=== PATIENT | female | born 1960 | race Asian ===

== ENCOUNTER 2017-01-15 17:07 | Inpatient (IN) | payer OTHER ==
[~2017-01-15] VITALS: Ht 152.4 cm; Wt 64.3 kg
[~2017-01-15 17:07] MED LIST: AMLO-512 PO; ASPI81TA2 PO; ATOR40TA28 PO; CALC25 PO; CARB4OS OU; ERGO500044 PO; FERR-72 PO; FOLI1CAP2 PO; FURO80TA87 PO; INSNOV SQ; INSU100C4 SQ; LEVO250T2 PO; LISI-662 PO; METO-325 PO; METR500T PO; ONDA4TAB10 PO; OS500 PO; SEVEC800 PO
[2017-01-15] MEDS ORDERED: DOCU250C91 PO (17:20)
[2017-01-15] MEDS ORDERED: TRAM50TA4 PO (17:21)
[2017-01-15 17:34] LABS: BASOPHILS # (AUTO) 0.02 K/uL (0.00-0.20); BASOPHILS % (AUTO) 0.4 % (0.0-2.0); EOSINOPHILS # (AUTO) 0.15 K/uL (0.00-0.70); EOSINOPHILS % (AUTO) 2.63 % (1.0-6.0); HEMATOCRIT 31.5 % (36-46); HEMOGLOBIN 10.5 g/dL (12.0-16.0); LYMPHOCYTES # (AUTO) 1.2 K/uL (1.0-4.8); LYMPHOCYTES % (AUTO) 21.5 % (22.0-44.0); MEAN CORPUSCULAR HEMOGLOBIN 29.8 pg (26.0-34.0); MEAN CORPUSCULAR HGB CONC 33.3 G/dL (31.0-37.0); MEAN CORPUSCULAR VOLUME 89 fL (80-100); MONOCYTES # (AUTO) 0.3 K/uL (0.1-1.0); MONOCYTES % (AUTO) 5.7 % (2.0-9.0); NEUTROPHILS % (AUTO) 69.8 % (40.0-70.0); PLATELET COUNT (AUTO) 215 K/uL (150-450); RED BLOOD CELL COUNT(AUTO) 3.53 MIL/uL (4.00-5.20); WHITE BLOOD COUNT (AUTO) 5.8 K/uL (4.5-11.0)
[2017-01-15 17:37] LABS: GLUCOSE,POINT OF CARE 298 MG/DL (70-110)
[2017-01-15 17:51] LABS: ALBUMIN 3.4 g/dL (3.4-5.0); BILIRUBIN,TOTAL 0.3 mg/dL (0.1-1.0); CALCIUM, TOTAL 8.9 mg/dL (8.8-10.5); CREATININE 3.99 mg/dL (0.60-1.30); TOTAL PROTEIN, SERUM 7.7 g/dL (6.4-8.2)
[2017-01-15 18:00] LABS: POTASSIUM 2.9 mmol/L (3.5-5.1)
[2017-01-15] MEDS ORDERED: NITROGLYCERIN 2% (1 GM=INCH) PACKET TP ONE (18:45)
[2017-01-15] MEDS ORDERED: MORPHINE SULFATE 4 MG/ML SYRINGE IVP ONE (18:45)
[2017-01-15] MEDS ORDERED: ONDANSETRON HCL 4 MG/2 ML VIAL IVP ONE (18:45)
[2017-01-15] MEDS ORDERED: POTASSIUM CHLORIDE 10 MEQ ER TABLET PO ONE ×2 (19:15→21:45)
[2017-01-15] MEDS ORDERED: 0.9% SODIUM CHLORIDE 10 ML SYRINGE IVP PRN (19:30)
[2017-01-15] MEDS ORDERED: ACETAMINOPHEN 325 MG TABLET PO PRN ×2 (19:30→21:30)
[2017-01-15] MEDS ORDERED: ONDANSETRON HCL 4 MG/2 ML VIAL IVP PRN (19:30)
[2017-01-15 20:31] VITALS: BP 137/66
[2017-01-15] MEDS ORDERED: ALBUTEROL SULFATE 2.5 MG/0.5 ML NEB SOLUTION NEB PRN (21:30)
[2017-01-15] MEDS ORDERED: BISACODYL 10 MG RECTAL RECTAL SUPPOSITORY PR PRN (21:30)
[2017-01-15] MEDS ORDERED: DEXTROSE 50%-WATER 25 GM/50 ML SYRINGE IVP PRN (21:45)
[2017-01-15] MEDS: ATORVASTATIN CALCIUM 20 MG TABLET PO SCH (22:06)
[2017-01-15] MEDS: ASPIRIN 81 MG CHEWABLE TABLET PO SCH (22:07)
[2017-01-15] MEDS: DiphenhydrAMINE HCL 25 MG CAPSULE PO PRN (22:10)
[2017-01-15 23:43] VITALS: BP 115/51
[2017-01-16] MEDS ORDERED: DiphenhydrAMINE HCL 25 MG CAPSULE PO SCH
[2017-01-16 05:48] VITALS: BP 110/53
[2017-01-16 07:21] VITALS: BP 125/55
[2017-01-16 08:08] LABS: GLUCOSE COMMENT 1 Received Meds; GLUCOSE,POINT OF CARE 258 MG/DL (70-110)
[2017-01-16 08:08] LABS: GLUCOSE,POINT OF CARE 120 MG/DL (70-110)
[2017-01-16] MEDS: VITAMIN B COMP/VIT C/FOLIC ACID CAPSULE PO SCH (08:15)
[2017-01-16] MEDS: HEPARIN SODIUM,PORCINE 5,000 UNITS/ML VIAL SQ SCH ×2 (08:15→20:15)
[2017-01-16] MEDS: PANTOPRAZOLE SODIUM 40 MG DR TABLET PO SCH (08:15)
[2017-01-16] MEDS: DOCUSATE SODIUM 100 MG CAPSULE PO SCH ×2 (08:15→20:15)
[2017-01-16] MEDS ORDERED: ASPIRIN 81 MG CHEWABLE TABLET PO SCH (09:00)
[2017-01-16 11:43] VITALS: BP 141/66
[2017-01-16] MEDS ORDERED: POTASSIUM CHLORIDE 20 MEQ ER TABLET PO ONE (11:45)
[2017-01-16] MEDS: INSULIN ASPART 100 UNITS/ML SQ PRN ×3 (11:56→20:23)
[2017-01-16 15:57] VITALS: BP 157/77
[2017-01-16 19:13] VITALS: BP 137/67
[2017-01-16 19:57] LABS: GLUCOSE,POINT OF CARE 203 MG/DL (70-110)
[2017-01-16 19:57] LABS: GLUCOSE,POINT OF CARE 245 MG/DL (70-110)
[2017-01-16] MEDS: ASPIRIN 81 MG CHEWABLE TABLET PO SCH (20:13)
[2017-01-16] MEDS: ATORVASTATIN CALCIUM 20 MG TABLET PO SCH (20:14)
[2017-01-16] MEDS: DiphenhydrAMINE HCL 25 MG CAPSULE PO PRN (20:14)
[2017-01-16] MEDS: MORPHINE SULFATE 2 MG/ML SYRINGE IVP PRN (21:39)
[2017-01-16 23:07] VITALS: BP 119/50
[2017-01-17] VITALS (9 sets, daily range): BP systolic 111–159; BP diastolic 51–76
[2017-01-17] MEDS: INSULIN ASPART 100 UNITS/ML SQ PRN ×4 (06:05→20:22)
[2017-01-17] MEDS ORDERED: LACTULOSE 20 GM/30 ML SOLUTION UDCUP PO PRN (10:15)
[2017-01-17] MEDS ORDERED: REGADENOSON 0.4 MG/5 ML PF SYRINGE IVP ONE ×2 (10:40→16:24)
[2017-01-17] MEDS ORDERED: SESTAMIBI TC99M/UD ISOTOPE 1 EA INJ INJ ONE ×2 (10:40→12:00)
[2017-01-17] MEDS ORDERED: AMINOPHYLLINE 25 MG/ML 10 ML VIAL IVP ONE (11:05)
[2017-01-17 11:22] LABS: GLUCOSE COMMENT 1 Received Meds; GLUCOSE,POINT OF CARE 154 MG/DL (70-110)
[2017-01-17 11:38] LABS: GLUCOSE COMMENT 1 Received Meds; GLUCOSE,POINT OF CARE 284 MG/DL (70-110)
[2017-01-17] MEDS: HEPARIN SODIUM,PORCINE 5,000 UNITS/ML VIAL SQ SCH ×2 (12:27→20:26)
[2017-01-17] MEDS: VITAMIN B COMP/VIT C/FOLIC ACID CAPSULE PO SCH (12:27)
[2017-01-17] MEDS: PANTOPRAZOLE SODIUM 40 MG DR TABLET PO SCH (12:27)
[2017-01-17] MEDS: DOCUSATE SODIUM 100 MG CAPSULE PO SCH ×2 (12:27→20:18)
[2017-01-17 12:33] LABS: GLUCOSE,POINT OF CARE 165 MG/DL (70-110)
[2017-01-17] MEDS ORDERED: AMINOPHYLLINE 25 MG/ML 10 ML VIAL IV ONE (16:24)
[2017-01-17] MEDS: DiphenhydrAMINE HCL 25 MG CAPSULE PO PRN ×2 (17:51→20:18)
[2017-01-17 19:54] LABS: GLUCOSE,POINT OF CARE 399 MG/DL (70-110)
[2017-01-17] MEDS: ATORVASTATIN CALCIUM 20 MG TABLET PO SCH (20:18)
[2017-01-17] MEDS: ASPIRIN 81 MG CHEWABLE TABLET PO SCH (20:18)
[2017-01-17] MEDS: MORPHINE SULFATE 2 MG/ML SYRINGE IVP PRN (20:19)
[2017-01-18 04:46] VITALS: BP 141/71
[2017-01-18 05:40] LABS: BASOPHILS % (AUTO) 0.5 % (0.0-2.0); EOSINOPHILS % (AUTO) 5.5 % (1.0-6.0); HEMATOCRIT 30.2 % (36-46); HEMOGLOBIN 10.1 g/dL (12.0-16.0); LYMPHOCYTES # (AUTO) 1.7 K/uL (1.0-4.8); LYMPHOCYTES % (AUTO) 31.1 % (22.0-44.0); MEAN CORPUSCULAR HEMOGLOBIN 29.8 pg (26.0-34.0); MEAN CORPUSCULAR HGB CONC 33.5 G/dL (31.0-37.0); MEAN CORPUSCULAR VOLUME 89 fL (80-100); MONOCYTES # (AUTO) 0.4 K/uL (0.1-1.0); MONOCYTES % (AUTO) 7.5 % (2.0-9.0); NEUTROPHILS # (AUTO) 3.1 K/uL (1.8-7.7); NEUTROPHILS % (AUTO) 55.4 % (40.0-70.0); PLATELET COUNT (AUTO) 211 K/uL (150-450); RED BLOOD CELL COUNT(AUTO) 3.39 MIL/uL (4.00-5.20); RED CELL DISTRIBUTION WIDTH 16.6 % (11.5-14.5); WHITE BLOOD COUNT (AUTO) 5.6 K/uL (4.5-11.0)
[2017-01-18 05:44] LABS: CALCIUM, TOTAL 9.1 mg/dL (8.8-10.5); CREATININE 7.76 mg/dL (0.60-1.30); POTASSIUM 4.3 mmol/L (3.5-5.1)
[2017-01-18] MEDS: INSULIN ASPART 100 UNITS/ML SQ PRN (06:09)
[2017-01-18 07:17] LABS: GLUCOSE COMMENT 1 Received Meds; GLUCOSE,POINT OF CARE 150 MG/DL (70-110)
[2017-01-18 07:17] LABS: GLUCOSE COMMENT 1 Received Meds; GLUCOSE,POINT OF CARE 278 MG/DL (70-110)
[2017-01-18 07:28] VITALS: BP 143/78
[2017-01-18] MEDS: PANTOPRAZOLE SODIUM 40 MG DR TABLET PO SCH (08:56)
[2017-01-18] MEDS: HEPARIN SODIUM,PORCINE 5,000 UNITS/ML VIAL SQ SCH (08:56)
[2017-01-18] MEDS: DOCUSATE SODIUM 100 MG CAPSULE PO SCH (08:56)
[2017-01-18] MEDS ORDERED: CALCITRIOL 0.25 MCG CAPSULE PO ONE (09:00)
[2017-01-18] MEDS ORDERED: SODIUM CHLORIDE 0.9% 2,000 ML IV ONE (09:09)
[2017-01-18] MEDS: DiphenhydrAMINE HCL 25 MG CAPSULE PO PRN (09:10)
[2017-01-18 11:46] VITALS: BP 151/84
[2017-01-18] MEDS: VITAMIN B COMP/VIT C/FOLIC ACID CAPSULE PO SCH (13:45)
[2017-01-18] MEDS ORDERED: HEPARIN SODIUM,PORCINE 1,000 UNITS/ML VIAL IVP ONE (16:44)
[2017-01-18] MEDS ORDERED: OXYGEN THERAPY IH SCH (20:00)
[2017-01-18 20:17] LABS: GLUCOSE,POINT OF CARE 121 MG/DL (70-110)
== END 2017-01-18 16:45 | disposition home or self-care (01) | DRG 438 ==
LOC: EMS 17:08 → 5N 19:13
PROVIDERS: ADMIT Internal Medicine; ATTEND Internal Medicine
PROC: 5A1D00Z (ICD-10-PCS; principal; 2017-01-18)
DX: K85.90 Acute pancreatitis without necrosis or infection, unspecified (principal); N18.6 End stage renal disease; I12.0 Hypertensive chronic kidney disease with stage 5 chronic kidney disease or end stage renal disease; R07.89 Other chest pain; D63.1 Anemia in chronic kidney disease; E11.21 Type 2 diabetes mellitus with diabetic nephropathy; E87.5 Hyperkalemia; F41.9 Anxiety disorder, unspecified; R74.8 Abnormal levels of other serum enzymes; E11.22 Type 2 diabetes mellitus with diabetic chronic kidney disease; E78.5 Hyperlipidemia, unspecified; Z99.2 Dependence on renal dialysis; E87.6 Hypokalemia; E11.65 Type 2 diabetes mellitus with hyperglycemia; Z88.6 Allergy status to analgesic agent; Z83.3 Family history of diabetes mellitus; Z87.891 Personal history of nicotine dependence; Z79.899 Other long term (current) drug therapy; Z79.4 Long term (current) use of insulin; Z82.49 Family history of ischemic heart disease and other diseases of the circulatory system
CPT/HCPCS: 78452; 82962; 84132; 93005; 93017; 93306; 96374; 96375; 99285; A9500; J0280; J1644; J2270; J2405; J2785; J7030

== ENCOUNTER 2017-07-28 05:10 | Emergency (ER) | payer MEDICARE, MEDICAID, OTHER ==
[~2017-07-28] VITALS: Ht 157.5 cm; Wt 68.2 kg
[~2017-07-28 05:10] MED LIST changes: -ASPI81TA2 PO; +ASPI81TA39 PO; +DOCU250C91 PO; -FERR-72 PO; -FURO80TA87 PO; -INSU100C4 SQ; -LEVO250T2 PO; -LISI-662 PO; -METO-325 PO; -METR500T PO; -ONDA4TAB10 PO
[2017-07-28 05:27] LABS: GLUCOSE,POINT OF CARE 200 MG/DL (70-110)
[2017-07-28] MEDS ORDERED: INSNOV SQ (05:59)
[2017-07-28] MEDS ORDERED: ONDA4 PO (05:59)
[2017-07-28] MEDS ORDERED: ATOR10TA84 PO (06:04)
[2017-07-28] MEDS ORDERED: FURO40 PO (06:04)
[2017-07-28] MEDS ORDERED: GABA-529 PO (06:04)
[2017-07-28] MEDS ORDERED: DOXA2TAB PO (06:04)
[2017-07-28] MEDS ORDERED: BENZ-51 PO (06:04)
[2017-07-28] MEDS ORDERED: LISI-662 PO (06:04)
[2017-07-28] MEDS ORDERED: GUAIF10 PO (06:04)
[2017-07-28 07:02] LABS: BASOPHILS % (AUTO) 0.9 % (0.0-2.0); EOSINOPHILS % (AUTO) 2.9 % (1.0-6.0); HEMATOCRIT 28.3 % (36-46); HEMOGLOBIN 9.6 g/dL (12.0-16.0); LYMPHOCYTES # (AUTO) 1.3 K/uL (1.0-4.8); LYMPHOCYTES % (AUTO) 21.7 % (22.0-44.0); MEAN CORPUSCULAR HEMOGLOBIN 32.4 pg (26.0-34.0); MEAN CORPUSCULAR HGB CONC 34.1 G/dL (31.0-37.0); MEAN CORPUSCULAR VOLUME 95 fL (80-100); MONOCYTES # (AUTO) 0.6 K/uL (0.1-1.0); MONOCYTES % (AUTO) 9.2 % (2.0-9.0); NEUTROPHILS % (AUTO) 65.3 % (40.0-70.0); PLATELET COUNT (AUTO) 237 K/uL (150-450); RED BLOOD CELL COUNT(AUTO) 2.98 MIL/uL (4.00-5.20); RED CELL DISTRIBUTION WIDTH 13.3 % (11.5-14.5)
[2017-07-28 07:13] LABS: CALCIUM, TOTAL 9.6 mg/dL (8.8-10.5); CREATININE 6.89 mg/dL (0.60-1.30); POTASSIUM 4.5 mmol/L (3.5-5.1)
[2017-07-28 07:30] VITALS: BP 124/72
== END 2017-07-28 07:58 | disposition home or self-care (01) ==
LOC: EMS 05:11
DX: J40 Bronchitis, not specified as acute or chronic (principal); I13.11 Hypertensive heart and chronic kidney disease without heart failure, with stage 5 chronic kidney disease, or end stage renal disease; E11.22 Type 2 diabetes mellitus with diabetic chronic kidney disease; N18.6 End stage renal disease; Z99.2 Dependence on renal dialysis; Z79.4 Long term (current) use of insulin; Z79.82 Long term (current) use of aspirin; Z88.5 Allergy status to narcotic agent
CPT/HCPCS: 82962; 93005; 99285

== ENCOUNTER 2017-10-19 02:22 | Inpatient (IN) | payer MEDICARE, OTHER, MEDICAID ==
[2017-10-19] VITALS (7 sets, daily range): BP systolic 100–132; BP diastolic 49–69
[~2017-10-19] VITALS: Ht 152.4 cm; Wt 63.7 kg
[~2017-10-19 02:22] MED LIST changes: +ATOR10TA84 PO; +BENZ-51 PO; -CALC25 PO; -CARB4OS OU; +DOXA2TAB PO; +FURO40 PO; +GABA-529 PO; +GUAIF10 PO; +LISI-662 PO; +ONDA4 PO
[2017-10-19] MEDS ORDERED: NITROGLYCERIN 2% (1 GM=INCH) PACKET TP ONE (03:15)
[2017-10-19] MEDS ORDERED: ASPIRIN 325 MG TABLET PO ONE (03:15)
[2017-10-19] MEDS ORDERED: NITROGLYCERIN 0.4 MG SUBLINGUAL TABLET #25 SL ONE (03:15)
[2017-10-19 04:06] LABS: ANION GAP 10 mmol/L (8-16); CARBON DIOXIDE 30 mmol/L (22-29); CHLORIDE 93 mmol/L (98-107); CREATININE 7.08 mg/dL (0.60-1.30); GLOMERULAR FILTR. RATE CALC 6 mL/min (>60); GLUCOSE,RANDOM 138 mg/dL (70-110); POTASSIUM 3.9 mmol/L (3.5-5.1); SODIUM SERUM 133 mmol/L (136-145); UREA NITROGEN, BLOOD 37 mg/dL (7-18)
[2017-10-19 04:10] LABS: BASOPHILS % (AUTO) 0.5 % (0.0-2.0); EOSINOPHILS % (AUTO) 2.6 % (1.0-6.0); HEMATOCRIT 40.7 % (36-46); HEMOGLOBIN 13.9 g/dL (12.0-16.0); LYMPHOCYTES # (AUTO) 1.6 K/uL (1.0-4.8); LYMPHOCYTES % (AUTO) 26.7 % (22.0-44.0); MEAN CORPUSCULAR HEMOGLOBIN 30.7 pg (26.0-34.0); MEAN CORPUSCULAR HGB CONC 34.2 G/dL (31.0-37.0); MEAN CORPUSCULAR VOLUME 90 fL (80-100); MONOCYTES # (AUTO) 0.7 K/uL (0.1-1.0); MONOCYTES % (AUTO) 11.1 % (2.0-9.0); NEUTROPHILS # (AUTO) 3.6 K/uL (1.8-7.7); NEUTROPHILS % (AUTO) 59.1 % (40.0-70.0); PLATELET COUNT (AUTO) 245 K/uL (150-450); RED BLOOD CELL COUNT(AUTO) 4.54 MIL/uL (4.00-5.20); RED CELL DISTRIBUTION WIDTH 13.3 % (11.5-14.5)
[2017-10-19 04:30] LABS: PROTHROMBIN TIME 10.5 SEC (9.4-11.6)
[2017-10-19] MEDS ORDERED: MORPHINE SULFATE 4 MG/ML SYRINGE IVP PRN (04:30)
[2017-10-19] MEDS ORDERED: 0.9% SODIUM CHLORIDE 10 ML SYRINGE IVP PRN ×2 (04:30→10:00)
[2017-10-19] MEDS ORDERED: FentaNYL CITRATE-PF 100 MCG/2 ML VIAL IVP ONE (04:30)
[2017-10-19] MEDS ORDERED: ONDANSETRON HCL 4 MG/2 ML VIAL IVP PRN ×2 (04:30→10:00)
[2017-10-19] MEDS ORDERED: ACETAMINOPHEN 325 MG TABLET PO PRN (04:30)
[2017-10-19] MEDS ORDERED: ACETAMINOPHEN 500 MG TABLET PO ONE (04:30)
[2017-10-19 04:31] LABS: ALANINE AMINOTRANSFERASE 39 U/L (12-78); ALBUMIN 4.3 g/dL (3.4-5.0); ALKALINE PHOSPHATASE 115 U/L (46-116); ASPARTATE AMINOTRANSFERASE 23 U/L (15-37); BILIRUBIN,TOTAL 0.5 mg/dL (0.1-1.0); CREATINE KINASE MB 1.5 ng/mL (0-5); CREATINE KINASE, TOTAL 163 U/L (26-192); LIPASE 453 U/L (73-393); TOTAL PROTEIN, SERUM 8.9 g/dL (6.4-8.2)
[2017-10-19 04:50] LABS: B-TYPE NATRIURETIC PEPTIDE 39 pg/mL (0-100)
[2017-10-19] MEDS ORDERED: DOCUSATE SODIUM 250 MG CAPSULE PO SCH (09:15)
[2017-10-19] MEDS ORDERED: ZOLPIDEM TARTRATE 5 MG TABLET PO PRN (10:00)
[2017-10-19] MEDS: ASPIRIN 81 MG CHEWABLE TABLET PO SCH (10:18)
[2017-10-19] MEDS: PANTOPRAZOLE SODIUM 40 MG/VIAL IVP SCH (10:18)
[2017-10-19] MEDS: HEPARIN SODIUM,PORCINE 5,000 UNITS/ML VIAL SQ SCH ×2 (10:19→16:37)
[2017-10-19] MEDS: FUROSEMIDE 40 MG TABLET PO SCH ×2 (10:19→20:00)
[2017-10-19] MEDS: METOPROLOL TARTRATE 25 MG TABLET PO SCH ×2 (10:19→20:01)
[2017-10-19] MEDS: DOCUSATE SODIUM 100 MG CAPSULE PO SCH ×2 (10:19→20:00)
[2017-10-19] MEDS: VITAMIN B COMP/VIT C/FOLIC ACID CAPSULE PO SCH (10:19)
[2017-10-19] MEDS ORDERED: DEXTROSE 50%-WATER 25 GM/50 ML SYRINGE IVP PRN (11:30)
[2017-10-19] MEDS: CALCIUM OYSTER SHELL 500 MG TABLET PO SCH ×2 (12:14→20:01)
[2017-10-19] MEDS: SEVELAMER CARBONATE 800 MG TABLET PO SCH ×2 (12:14→18:21)
[2017-10-19] MEDS: DOXAZOSIN MESYLATE 2 MG TABLET PO SCH ×2 (12:14→20:01)
[2017-10-19] MEDS: AmLODIPine BESYLATE 10 MG TABLET PO SCH (12:15)
[2017-10-19] MEDS: INSULIN LISPRO 100 UNITS/ML SQ PRN (12:16)
[2017-10-19] MEDS ORDERED: SESTAMIBI TC99M/UD ISOTOPE 1 EA INJ INJ ONE (13:05)
[2017-10-19 13:38] LABS: GLUCOMETER DEV NAME(LOC) 5N 2S; GLUCOSE,POINT OF CARE 146 MG/DL (70-110)
[2017-10-19] MEDS: LISINOPRIL 20 MG TABLET PO SCH (13:55)
[2017-10-19] MEDS: ATORVASTATIN CALCIUM 40 MG TABLET PO SCH (20:01)
[2017-10-19] MEDS: GABAPENTIN 100 MG CAPSULE PO SCH (20:01)
[2017-10-19 20:02] LABS: GLUCOMETER DEV NAME(LOC) 5N 1P; GLUCOSE,POINT OF CARE 204 MG/DL (70-110)
[2017-10-19 20:57] LABS: GLUCOMETER DEV NAME(LOC) 5N 1P; GLUCOSE,POINT OF CARE 193 MG/DL (70-110)
[2017-10-19 22:27] LABS: GLUCOMETER DEV NAME(LOC) 5S 1M; GLUCOSE,POINT OF CARE 125 MG/DL (70-110)
[2017-10-20] VITALS (9 sets, daily range): BP systolic 94–131; BP diastolic 48–63
[2017-10-20] MEDS: HEPARIN SODIUM,PORCINE 5,000 UNITS/ML VIAL SQ SCH ×4 (00:04→23:25)
[2017-10-20 05:28] LABS: GLUCOMETER DEV NAME(LOC) 5S 1M; GLUCOSE,POINT OF CARE 175 MG/DL (70-110)
[2017-10-20 06:27] LABS: BASOPHILS % (AUTO) 0.8 % (0.0-2.0); EOSINOPHILS % (AUTO) 3.6 % (1.0-6.0); HEMATOCRIT 36.4 % (36-46); HEMOGLOBIN 12.4 g/dL (12.0-16.0); LYMPHOCYTES # (AUTO) 2.2 K/uL (1.0-4.8); LYMPHOCYTES % (AUTO) 47.5 % (22.0-44.0); MEAN CORPUSCULAR HEMOGLOBIN 30.9 pg (26.0-34.0); MEAN CORPUSCULAR HGB CONC 34.1 G/dL (31.0-37.0); MEAN CORPUSCULAR VOLUME 91 fL (80-100); MONOCYTES # (AUTO) 0.6 K/uL (0.1-1.0); MONOCYTES % (AUTO) 12.5 % (2.0-9.0); NEUTROPHILS # (AUTO) 1.7 K/uL (1.8-7.7); NEUTROPHILS % (AUTO) 35.6 % (40.0-70.0); PLATELET COUNT (AUTO) 190 K/uL (150-450); RED BLOOD CELL COUNT(AUTO) 4.01 MIL/uL (4.00-5.20)
[2017-10-20 06:42] LABS: ALBUMIN 3.5 g/dL (3.4-5.0); BILIRUBIN,TOTAL 0.2 mg/dL (0.1-1.0); CALCIUM, TOTAL 9.3 mg/dL (8.8-10.5); CREATININE 9.94 mg/dL (0.60-1.30); MAGNESIUM 2.9 mg/dL (1.80-2.40); POTASSIUM 4.5 mmol/L (3.5-5.1); TOTAL PROTEIN, SERUM 7.4 g/dL (6.4-8.2)
[2017-10-20] MEDS ORDERED: REGADENOSON 0.4 MG/5 ML PF SYRINGE IVP ONE ×2 (08:09→14:22)
[2017-10-20] MEDS ORDERED: AMINOPHYLLINE 25 MG/ML 10 ML VIAL IVP ONE (08:12)
[2017-10-20] MEDS ORDERED: SESTAMIBI TC99M/UD ISOTOPE 1 EA INJ INJ ONE (08:15)
[2017-10-20] MEDS: PANTOPRAZOLE SODIUM 40 MG/VIAL IVP SCH (08:58)
[2017-10-20] MEDS: CALCIUM OYSTER SHELL 500 MG TABLET PO SCH ×2 (08:59→20:15)
[2017-10-20] MEDS: DOCUSATE SODIUM 100 MG CAPSULE PO SCH ×2 (08:59→20:28)
[2017-10-20] MEDS: ASPIRIN 81 MG CHEWABLE TABLET PO SCH (08:59)
[2017-10-20] MEDS: VITAMIN B COMP/VIT C/FOLIC ACID CAPSULE PO SCH (08:59)
[2017-10-20] MEDS: LISINOPRIL 20 MG TABLET PO SCH (09:00)
[2017-10-20] MEDS: FUROSEMIDE 40 MG TABLET PO SCH ×2 (09:00→20:28)
[2017-10-20] MEDS: DOXAZOSIN MESYLATE 2 MG TABLET PO SCH ×2 (09:00→20:28)
[2017-10-20] MEDS: AmLODIPine BESYLATE 10 MG TABLET PO SCH (09:00)
[2017-10-20] MEDS: METOPROLOL TARTRATE 25 MG TABLET PO SCH ×2 (09:00→20:28)
[2017-10-20] MEDS: SEVELAMER CARBONATE 800 MG TABLET PO SCH ×3 (09:02→20:13)
[2017-10-20] MEDS: INSULIN LISPRO 100 UNITS/ML SQ PRN ×2 (12:34→20:19)
[2017-10-20] MEDS ORDERED: AMINOPHYLLINE 25 MG/ML 10 ML VIAL ONE (14:22)
[2017-10-20] MEDS ORDERED: SODIUM CHLORIDE 0.9% 2,000 ML IV ONE (14:40)
[2017-10-20 14:53] LABS: GLUCOMETER DEV NAME(LOC) 5S 1M; GLUCOSE,POINT OF CARE 495 MG/DL (70-110)
[2017-10-20 14:53] LABS: GLUCOMETER DEV NAME(LOC) 5S 1M; GLUCOSE,POINT OF CARE 390 MG/DL (70-110)
[2017-10-20 19:58] LABS: GLUCOMETER DEV NAME(LOC) 5S 1M; GLUCOSE,POINT OF CARE 141 MG/DL (70-110)
[2017-10-20] MEDS: ATORVASTATIN CALCIUM 40 MG TABLET PO SCH (20:15)
[2017-10-20] MEDS: GABAPENTIN 100 MG CAPSULE PO SCH (20:15)
[2017-10-20 20:38] LABS: GLUCOMETER DEV NAME(LOC) 5S 1M; GLUCOSE,POINT OF CARE 178 MG/DL (70-110)
[2017-10-20] MEDS ORDERED: INSULIN GLARGINE,HUM.REC.ANLOG 100 UNITS/ML SQ SCH (21:00)
[2017-10-21 04:29] VITALS: BP 124/53
[2017-10-21] MEDS: INSULIN LISPRO 100 UNITS/ML SQ PRN (06:14)
[2017-10-21 06:48] LABS: GLUCOMETER DEV NAME(LOC) 5S 1M; GLUCOSE,POINT OF CARE 265 MG/DL (70-110)
[2017-10-21 07:26] LABS: BASOPHILS % (AUTO) 0.7 % (0.0-2.0); EOSINOPHILS % (AUTO) 2.9 % (1.0-6.0); HEMATOCRIT 35.9 % (36-46); HEMOGLOBIN 12.1 g/dL (12.0-16.0); LYMPHOCYTES # (AUTO) 1.4 K/uL (1.0-4.8); MEAN CORPUSCULAR HEMOGLOBIN 30.6 pg (26.0-34.0); MEAN CORPUSCULAR HGB CONC 33.6 G/dL (31.0-37.0); MEAN CORPUSCULAR VOLUME 91 fL (80-100); MONOCYTES # (AUTO) 0.5 K/uL (0.1-1.0); NEUTROPHILS # (AUTO) 2.5 K/uL (1.8-7.7); NEUTROPHILS % (AUTO) 55.4 % (40.0-70.0); PLATELET COUNT (AUTO) 178 K/uL (150-450); RED BLOOD CELL COUNT(AUTO) 3.94 MIL/uL (4.00-5.20); RED CELL DISTRIBUTION WIDTH 13.2 % (11.5-14.5)
[2017-10-21 07:40] VITALS: BP 128/60
[2017-10-21 07:45] LABS: ALBUMIN 3.6 g/dL (3.4-5.0); BILIRUBIN,TOTAL 0.2 mg/dL (0.1-1.0); CALCIUM, TOTAL 8.8 mg/dL (8.8-10.5); CREATININE 6.7 mg/dL (0.60-1.30); MAGNESIUM 2.2 mg/dL (1.80-2.40); TOTAL PROTEIN, SERUM 7.6 g/dL (6.4-8.2)
[2017-10-21 08:31] VITALS: BP 115/69
[2017-10-21] MEDS: HEPARIN SODIUM,PORCINE 5,000 UNITS/ML VIAL SQ SCH (08:35)
[2017-10-21] MEDS: PANTOPRAZOLE SODIUM 40 MG/VIAL IVP SCH (08:35)
[2017-10-21] MEDS: SEVELAMER CARBONATE 800 MG TABLET PO SCH ×2 (08:35→12:03)
[2017-10-21] MEDS: FUROSEMIDE 40 MG TABLET PO SCH (08:36)
[2017-10-21] MEDS: LISINOPRIL 20 MG TABLET PO SCH (08:36)
[2017-10-21] MEDS: DOXAZOSIN MESYLATE 2 MG TABLET PO SCH (08:36)
[2017-10-21] MEDS: ASPIRIN 81 MG CHEWABLE TABLET PO SCH (08:36)
[2017-10-21] MEDS: VITAMIN B COMP/VIT C/FOLIC ACID CAPSULE PO SCH (08:36)
[2017-10-21] MEDS: DOCUSATE SODIUM 100 MG CAPSULE PO SCH (08:36)
[2017-10-21] MEDS: CALCIUM OYSTER SHELL 500 MG TABLET PO SCH (08:36)
[2017-10-21] MEDS: METOPROLOL TARTRATE 25 MG TABLET PO SCH (08:49)
[2017-10-21] MEDS: AmLODIPine BESYLATE 10 MG TABLET PO SCH (08:49)
[2017-10-21] MEDS ORDERED: ACETAMINOPHEN 325 MG TABLET PO PRN (10:15)
[2017-10-21 11:30] VITALS: BP 119/58
[2017-10-21] MEDS ORDERED: INSULIN LISPRO 100 UNITS/ML SQ ONE (11:45)
[2017-10-21] MEDS ORDERED: INSLAN SQ (12:32)
[2017-10-21 20:27] LABS: GLUCOMETER DEV NAME(LOC) 5S 1M; GLUCOSE,POINT OF CARE 437 MG/DL (70-110)
== END 2017-10-21 13:25 | disposition home or self-care (01) | DRG 311 ==
LOC: EMS 02:23 → 5S 04:49
PROVIDERS: ADMIT Internal Medicine; ATTEND Internal Medicine
PROC: 5A1D70Z Performance of Urinary Filtration, Intermittent, Less than 6 Hours Per Day (ICD-10-PCS; principal; 2017-10-20)
DX: I20.0 Unstable angina (principal); E11.21 Type 2 diabetes mellitus with diabetic nephropathy; I12.0 Hypertensive chronic kidney disease with stage 5 chronic kidney disease or end stage renal disease; N18.6 End stage renal disease; E87.1 Hypo-osmolality and hyponatremia; F41.9 Anxiety disorder, unspecified; E83.39 Other disorders of phosphorus metabolism; D63.1 Anemia in chronic kidney disease; E11.22 Type 2 diabetes mellitus with diabetic chronic kidney disease; E78.5 Hyperlipidemia, unspecified; Z99.2 Dependence on renal dialysis; Z83.3 Family history of diabetes mellitus; Z82.49 Family history of ischemic heart disease and other diseases of the circulatory system
CPT/HCPCS: 78452; 82962; 83036; 83735; 87081; 87340; 93005; 93017; 93306; 96374; 99285; A9500; C9113; J0280; J1644; J1815; J2405; J2785; J3010; J7030

== ENCOUNTER 2018-01-11 00:44 | Emergency (ER) | payer MEDICARE, OTHER, MEDICAID ==
[~2018-01-11] VITALS: Ht 152.4 cm; Wt 61.5 kg
[~2018-01-11 00:44] MED LIST changes: -ATOR10TA84 PO; -BENZ-51 PO; -GUAIF10 PO; +INSLAN SQ
[2018-01-11 01:08] LABS: GLUCOSE,POINT OF CARE 254 MG/DL (70-110)
[2018-01-11 01:33] LABS: BASOPHILS % (AUTO) 0.8 % (0.0-2.0); EOSINOPHILS % (AUTO) 2.2 % (1.0-6.0); HEMATOCRIT 29.9 % (36-46); HEMOGLOBIN 10.4 g/dL (12.0-16.0); LYMPHOCYTES # (AUTO) 1.7 K/uL (1.0-4.8); MEAN CORPUSCULAR HEMOGLOBIN 31.8 pg (26.0-34.0); MEAN CORPUSCULAR HGB CONC 34.8 G/dL (31.0-37.0); MEAN CORPUSCULAR VOLUME 91 fL (80-100); MONOCYTES # (AUTO) 0.5 K/uL (0.1-1.0); MONOCYTES % (AUTO) 7.4 % (2.0-9.0); NEUTROPHILS # (AUTO) 3.9 K/uL (1.8-7.7); NEUTROPHILS % (AUTO) 62.6 % (40.0-70.0); PLATELET COUNT (AUTO) 233 K/uL (150-450); RED BLOOD CELL COUNT(AUTO) 3.27 MIL/uL (4.00-5.20); RED CELL DISTRIBUTION WIDTH 13.6 % (11.5-14.5)
[2018-01-11 01:40] LABS: CALCIUM, TOTAL 9.5 mg/dL (8.8-10.5); CREATININE 6.43 mg/dL (0.60-1.30); POTASSIUM 3.3 mmol/L (3.5-5.1)
[2018-01-11 01:46] LABS: BILIRUBIN,TOTAL 0.5 mg/dL (0.1-1.0); TOTAL PROTEIN, SERUM 8.3 g/dL (6.4-8.2)
[2018-01-11] MEDS ORDERED: ACETAMINOPHEN 500 MG TABLET PO ONE (05:30)
[2018-01-11 05:34] VITALS: BP 116/58
== END 2018-01-11 06:11 | disposition home or self-care (01) ==
LOC: EMS 00:45
DX: R07.89 Other chest pain (principal); I12.0 Hypertensive chronic kidney disease with stage 5 chronic kidney disease or end stage renal disease; E11.22 Type 2 diabetes mellitus with diabetic chronic kidney disease; N18.6 End stage renal disease; Z99.2 Dependence on renal dialysis; Z79.4 Long term (current) use of insulin; Z88.5 Allergy status to narcotic agent
CPT/HCPCS: 93005; 99285

== ENCOUNTER → 2018-02-08 | Outpatient (CLI) | payer MEDICARE, OTHER, MEDICAID | END | disposition home or self-care (01) | LOC: RADMN 16:36 | PROVIDERS: ATTEND Hospitalist | DX: R76.11 Nonspecific reaction to tuberculin skin test without active tuberculosis (principal) ==

== ENCOUNTER 2018-05-14 02:05 | Inpatient (IN) | payer MEDICARE, OTHER, MEDICAID ==
[~2018-05-14] VITALS: Ht 152.4 cm; Wt 62.5 kg
[~2018-05-14 02:05] MED LIST changes: -INSNOV SQ
[2018-05-14 02:39] LABS: GLUCOSE,POINT OF CARE 179 MG/DL (70-110)
[2018-05-14] MEDS ORDERED: METOCLOPRAMIDE HCL 10 MG TABLET PO ONE (02:45)
[2018-05-14 03:32] LABS: BASOPHILS % (AUTO) 1.1 % (0.0-2.0); HEMATOCRIT 31.7 % (36-46); HEMOGLOBIN 10.7 g/dL (12.0-16.0); LYMPHOCYTES % (AUTO) 32.7 % (22.0-44.0); MEAN CORPUSCULAR HEMOGLOBIN 30.6 pg (26.0-34.0); MEAN CORPUSCULAR HGB CONC 33.8 G/dL (31.0-37.0); MEAN CORPUSCULAR VOLUME 91 fL (80-100); MONOCYTES # (AUTO) 0.6 K/uL (0.1-1.0); MONOCYTES % (AUTO) 9.5 % (2.0-9.0); NEUTROPHILS # (AUTO) 3.2 K/uL (1.8-7.7); NEUTROPHILS % (AUTO) 53.7 % (40.0-70.0); PLATELET COUNT (AUTO) 240 K/uL (150-450); RED BLOOD CELL COUNT(AUTO) 3.51 MIL/uL (4.00-5.20); RED CELL DISTRIBUTION WIDTH 12.9 % (11.5-14.5)
[2018-05-14 03:40] LABS: CALCIUM, TOTAL 9.5 mg/dL (8.8-10.5); CREATININE 5.05 mg/dL (0.60-1.30); POTASSIUM 3.3 mmol/L (3.5-5.1)
[2018-05-14 03:42] LABS: PROTHROMBIN TIME 10.6 SEC (9.4-11.6)
[2018-05-14 03:48] LABS: ALBUMIN 3.8 g/dL (3.4-5.0); BILIRUBIN,TOTAL 0.4 mg/dL (0.1-1.0)
[2018-05-14] MEDS ORDERED: ACETAMINOPHEN 325 MG TABLET PO ONE (04:15)
[2018-05-14] MEDS ORDERED: ACETAMINOPHEN 325 MG TABLET PO PRN (05:30)
[2018-05-14] MEDS ORDERED: 0.9% SODIUM CHLORIDE 10 ML SYRINGE IVP PRN (05:30)
[2018-05-14] MEDS ORDERED: ONDANSETRON HCL 4 MG/2 ML VIAL IVP PRN (05:30)
[2018-05-14 08:08] LABS: GLUCOSE,POINT OF CARE 112 MG/DL (70-110)
[2018-05-14] MEDS ORDERED: DEXTROSE 50%-WATER 25 GM/50 ML SYRINGE IVP PRN (08:45)
[2018-05-14 08:48] VITALS: BP 134/77
[2018-05-14] MEDS ORDERED: BISACODYL 10 MG RECTAL RECTAL SUPPOSITORY PR PRN (09:00)
[2018-05-14] MEDS: PANTOPRAZOLE SODIUM 40 MG DR TABLET PO SCH (10:36)
[2018-05-14] MEDS: SEVELAMER CARBONATE 800 MG TABLET PO SCH ×3 (10:36→17:54)
[2018-05-14] MEDS: ASPIRIN 81 MG CHEWABLE TABLET PO SCH (10:36)
[2018-05-14] MEDS: DOCUSATE SODIUM 100 MG CAPSULE PO SCH ×2 (10:36→20:32)
[2018-05-14] MEDS: ATORVASTATIN CALCIUM 20 MG TABLET PO SCH (10:36)
[2018-05-14 11:24] VITALS: BP 130/72
[2018-05-14] MEDS: INSULIN LISPRO 100 UNITS/ML SQ PRN ×3 (12:18→20:33)
[2018-05-14 13:38] LABS: GLUCOMETER DEV NAME(LOC) 5S 1N; GLUCOSE,POINT OF CARE 229 MG/DL (70-110)
[2018-05-14] MEDS: VITAMIN B COMP/VIT C/FOLIC ACID CAPSULE PO SCH (14:00)
[2018-05-14] MEDS ORDERED: CELECOXIB 200 MG CAPSULE PO PRN (14:00)
[2018-05-14] MEDS: ACETAMINOPHEN 325 MG TABLET PO PRN ×2 (14:00→20:32)
[2018-05-14] MEDS ORDERED: INSNOV SQ (14:15)
[2018-05-14 16:26] VITALS: BP 136/61
[2018-05-14 19:42] VITALS: BP 141/63
[2018-05-14 21:24] LABS: GLUCOMETER DEV NAME(LOC) 5S 1N; GLUCOSE,POINT OF CARE 272 MG/DL (70-110)
[2018-05-14 21:24] LABS: GLUCOMETER DEV NAME(LOC) 5S 1N; GLUCOSE,POINT OF CARE 199 MG/DL (70-110)
[2018-05-14 23:48] VITALS: BP 146/63
[2018-05-15 04:18] VITALS: BP 139/72
[2018-05-15 05:58] LABS: BASOPHILS % (AUTO) 1.1 % (0.0-2.0); EOSINOPHILS % (AUTO) 4.2 % (1.0-6.0); HEMATOCRIT 27.9 % (36-46); HEMOGLOBIN 9.7 g/dL (12.0-16.0); LYMPHOCYTES % (AUTO) 38.3 % (22.0-44.0); MEAN CORPUSCULAR HEMOGLOBIN 31.2 pg (26.0-34.0); MEAN CORPUSCULAR HGB CONC 34.9 G/dL (31.0-37.0); MEAN CORPUSCULAR VOLUME 89 fL (80-100); MONOCYTES # (AUTO) 0.5 K/uL (0.1-1.0); MONOCYTES % (AUTO) 9.8 % (2.0-9.0); NEUTROPHILS # (AUTO) 2.4 K/uL (1.8-7.7); NEUTROPHILS % (AUTO) 46.6 % (40.0-70.0); PLATELET COUNT (AUTO) 219 K/uL (150-450); RED BLOOD CELL COUNT(AUTO) 3.12 MIL/uL (4.00-5.20); RED CELL DISTRIBUTION WIDTH 12.8 % (11.5-14.5)
[2018-05-15 06:11] LABS: ALBUMIN 3.3 g/dL (3.4-5.0); BILIRUBIN,TOTAL 0.4 mg/dL (0.1-1.0); CALCIUM, TOTAL 9.4 mg/dL (8.8-10.5); CREATININE 7.19 mg/dL (0.60-1.30); POTASSIUM 4.3 mmol/L (3.5-5.1); TOTAL PROTEIN, SERUM 6.9 g/dL (6.4-8.2)
[2018-05-15] MEDS: INSULIN LISPRO 100 UNITS/ML SQ PRN ×2 (06:17→12:02)
[2018-05-15 07:42] VITALS: BP 135/59
[2018-05-15] MEDS: PANTOPRAZOLE SODIUM 40 MG DR TABLET PO SCH (08:15)
[2018-05-15] MEDS: ATORVASTATIN CALCIUM 20 MG TABLET PO SCH (08:15)
[2018-05-15] MEDS: DOCUSATE SODIUM 100 MG CAPSULE PO SCH (08:15)
[2018-05-15] MEDS: ASPIRIN 81 MG CHEWABLE TABLET PO SCH (08:15)
[2018-05-15] MEDS: SEVELAMER CARBONATE 800 MG TABLET PO SCH ×2 (08:15→12:03)
[2018-05-15] MEDS: VITAMIN B COMP/VIT C/FOLIC ACID CAPSULE PO SCH (08:15)
[2018-05-15 11:23] VITALS: BP_SYST 135; BP_SYST 145; BP_DIAS 59; BP_DIAS 73
[2018-05-15 17:15] LABS: GLUCOMETER DEV NAME(LOC) 5S 1N; GLUCOSE,POINT OF CARE 357 MG/DL (70-110)
[2018-05-15 17:15] LABS: GLUCOMETER DEV NAME(LOC) 5S 1N; GLUCOSE,POINT OF CARE 223 MG/DL (70-110)
== END 2018-05-15 14:40 | disposition home or self-care (01) | DRG 313 ==
LOC: EMS 02:07 → 5N 05:10
PROVIDERS: ADMIT Internal Medicine; ATTEND Internal Medicine
DX: R07.89 Other chest pain (principal); N18.6 End stage renal disease; I13.11 Hypertensive heart and chronic kidney disease without heart failure, with stage 5 chronic kidney disease, or end stage renal disease; E11.22 Type 2 diabetes mellitus with diabetic chronic kidney disease; E11.40 Type 2 diabetes mellitus with diabetic neuropathy, unspecified; E78.5 Hyperlipidemia, unspecified; F41.1 Generalized anxiety disorder; F41.9 Anxiety disorder, unspecified; G43.909 Migraine, unspecified, not intractable, without status migrainosus; G44.209 Tension-type headache, unspecified, not intractable; Z79.4 Long term (current) use of insulin; Z83.3 Family history of diabetes mellitus; Z99.2 Dependence on renal dialysis; Z88.5 Allergy status to narcotic agent
CPT/HCPCS: 70450; 87081; 93005; 93306; G0378

== ENCOUNTER 2018-05-26 03:24 | Emergency (ER) | payer MEDICARE, OTHER, MEDICAID ==
[~2018-05-26] VITALS: Ht 165.1 cm; Wt 61.5 kg
[~2018-05-26 03:24] MED LIST changes: -DOXA2TAB PO; -FURO40 PO; -GABA-529 PO; -INSLAN SQ; +INSNOV SQ; -LISI-662 PO; -ONDA4 PO; -OS500 PO
[2018-05-26] MEDS ORDERED: LISI40TA4 PO (03:33)
[2018-05-26] MEDS ORDERED: FURO40TA5 PO (03:33)
[2018-05-26] MEDS ORDERED: SERT50TA12 PO (03:37)
[2018-05-26] MEDS ORDERED: GABA-529 PO (03:37)
[2018-05-26] MEDS ORDERED: METO-558 PO (03:38)
[2018-05-26] MEDS ORDERED: NITR.4 SL (03:38)
[2018-05-26 03:39] LABS: GLUCOSE,POINT OF CARE 160 MG/DL (70-110)
[2018-05-26] MEDS ORDERED: ISON300T17 PO (03:42)
[2018-05-26] MEDS ORDERED: LORazepam 1 MG TABLET PO ONE (04:00)
[2018-05-26 04:07] LABS: EOSINOPHILS % (AUTO) 3.8 % (1.0-6.0); HEMATOCRIT 32.6 % (36-46); LYMPHOCYTES # (AUTO) 1.8 K/uL (1.0-4.8); LYMPHOCYTES % (AUTO) 27.2 % (22.0-44.0); MEAN CORPUSCULAR HEMOGLOBIN 30.4 pg (26.0-34.0); MEAN CORPUSCULAR HGB CONC 33.8 G/dL (31.0-37.0); MEAN CORPUSCULAR VOLUME 90 fL (80-100); MONOCYTES # (AUTO) 0.6 K/uL (0.1-1.0); MONOCYTES % (AUTO) 8.9 % (2.0-9.0); NEUTROPHILS % (AUTO) 59.1 % (40.0-70.0); PLATELET COUNT (AUTO) 225 K/uL (150-450); RED BLOOD CELL COUNT(AUTO) 3.62 MIL/uL (4.00-5.20)
[2018-05-26 04:14] LABS: CALCIUM, TOTAL 9.6 mg/dL (8.8-10.5); CREATININE 5.11 mg/dL (0.60-1.30); POTASSIUM 3.9 mmol/L (3.5-5.1)
[2018-05-26 04:20] LABS: BILIRUBIN,TOTAL 0.4 mg/dL (0.1-1.0)
[2018-05-26 04:54] VITALS: BP 138/68
== END 2018-05-26 05:20 | disposition home or self-care (01) ==
LOC: EMS 03:24
DX: R07.9 Chest pain, unspecified (principal); F41.9 Anxiety disorder, unspecified; I12.0 Hypertensive chronic kidney disease with stage 5 chronic kidney disease or end stage renal disease; E11.22 Type 2 diabetes mellitus with diabetic chronic kidney disease; N18.6 End stage renal disease; Z99.2 Dependence on renal dialysis; Z79.82 Long term (current) use of aspirin; Z79.4 Long term (current) use of insulin; Z79.899 Other long term (current) drug therapy; Z88.5 Allergy status to narcotic agent; Z88.8 Allergy status to other drugs, medicaments and biological substances
CPT/HCPCS: 93005

== ENCOUNTER 2019-02-16 08:13 | Emergency (ER) | payer MEDICARE, OTHER ==
[~2019-02-16] VITALS: Ht 152.4 cm; Wt 56.0 kg
[~2019-02-16 08:13] MED LIST changes: -AMLO-512 PO; +AMLO10TA7 PO; +FURO40TA5 PO; +GABA-529 PO; +ISON300T17 PO; +LISI40TA4 PO; +METO-558 PO; +NITR0.4T52 SL; +SERT50TA12 PO; +SEVE800T17 PO; -SEVEC800 PO
[2019-02-16] MEDS ORDERED: MECL-111 PO (08:22)
[2019-02-16] MEDS ORDERED: CINA30 PO (08:22)
[2019-02-16] MEDS ORDERED: HYDR-2924 PO (08:22)
[2019-02-16] MEDS ORDERED: ACETAMINOPHEN 325 MG TABLET PO ONE (08:30)
[2019-02-16] MEDS ORDERED: MORPHINE SULFATE 2 MG/ML SYRINGE IVP ONE (08:30)
[2019-02-16] MEDS ORDERED: VANCOMYCIN HCL 1 GM/D5% WATER 200 ML IV ONE (08:30)
[2019-02-16] MEDS ORDERED: IOVERSOL 350 MG/ML 100 ML VIAL ONE (08:33)
[2019-02-16] MEDS ORDERED: SODIUM CHLORIDE 0.9% 100 ML ONE (08:33)
[2019-02-16 08:51] LABS: BASOPHILS % (AUTO) 0.4 % (0.0-2.0); EOSINOPHILS % (AUTO) 0.4 % (1.0-6.0); HEMATOCRIT 39.5 % (36-46); HEMOGLOBIN 12.7 g/dL (12.0-16.0); LYMPHOCYTES # (AUTO) 0.8 K/uL (1.0-4.8); LYMPHOCYTES % (AUTO) 4.6 % (22.0-44.0); MEAN CORPUSCULAR HEMOGLOBIN 29.8 pg (26.0-34.0); MEAN CORPUSCULAR HGB CONC 32.2 G/dL (31.0-37.0); MEAN CORPUSCULAR VOLUME 93 fL (80-100); MONOCYTES % (AUTO) 5.6 % (2.0-9.0); NEUTROPHILS # (AUTO) 16.6 K/uL (1.8-7.7); PLATELET COUNT (AUTO) 213 K/uL (150-450); RED BLOOD CELL COUNT(AUTO) 4.27 MIL/uL (4.00-5.20); RED CELL DISTRIBUTION WIDTH 14.8 % (11.5-14.5)
[2019-02-16 09:02] LABS: CALCIUM, TOTAL 8.5 mg/dL (8.8-10.5); CREATININE 12.58 mg/dL (0.60-1.30)
[2019-02-16 12:20] VITALS: BP 157/87
== END 2019-02-16 12:25 | disposition short-term general hospital (02) ==
LOC: EMS 08:15
DX: L03.221 Cellulitis of neck (principal); I12.0 Hypertensive chronic kidney disease with stage 5 chronic kidney disease or end stage renal disease; E11.22 Type 2 diabetes mellitus with diabetic chronic kidney disease; N18.6 End stage renal disease; F41.9 Anxiety disorder, unspecified; Z99.2 Dependence on renal dialysis; Z79.899 Other long term (current) drug therapy; Z88.5 Allergy status to narcotic agent; Z79.4 Long term (current) use of insulin; Z79.82 Long term (current) use of aspirin
CPT/HCPCS: 36415; 70491; 80048; 85025; 87040; 96365; 96366; 96375; 99285; J2270; J3370; J7050; Q9967

== ENCOUNTER 2020-09-23 16:58 | Inpatient (IN) | payer MEDICARE, OTHER ==
[~2020-09-23] VITALS: Ht 152.4 cm; Wt 53.2 kg
[~2020-09-23 16:58] MED LIST changes: +AMLO-258 PO; -AMLO10TA7 PO; +CINA30 PO; -DOCU250C91 PO; -ERGO500044 PO; -FOLI1CAP2 PO; +HYDR50TA36 PO; -LISI40TA4 PO; +LISI40TA9 PO; +MECL-160 PO; +SERT-439 PO; -SERT50TA12 PO
[2020-09-23 18:25] LABS: BASOPHILS % (AUTO) 0.9 % (0.0-2.0); EOSINOPHILS % (AUTO) 3.1 % (1.0-6.0); HEMATOCRIT 39.6 % (36-46); HEMOGLOBIN 12.9 g/dL (12.0-16.0); LYMPHOCYTES # (AUTO) 1.1 K/uL (1.0-4.8); LYMPHOCYTES % (AUTO) 22.5 % (22.0-44.0); MEAN CORPUSCULAR HEMOGLOBIN 29.9 pg (26.0-34.0); MEAN CORPUSCULAR HGB CONC 32.7 G/dL (31.0-37.0); MEAN CORPUSCULAR VOLUME 91 fL (80-100); MONOCYTES # (AUTO) 0.3 K/uL (0.1-1.0); MONOCYTES % (AUTO) 5.6 % (2.0-9.0); NEUTROPHILS # (AUTO) 3.2 K/uL (1.8-7.7); NEUTROPHILS % (AUTO) 67.9 % (40.0-70.0); PLATELET COUNT (AUTO) 209 K/uL (150-450); RED BLOOD CELL COUNT(AUTO) 4.33 MIL/uL (4.00-5.20); RED CELL DISTRIBUTION WIDTH 15.1 % (11.5-14.5)
[2020-09-23 18:27] LABS: CALCIUM, TOTAL 9.5 mg/dL (8.8-10.5); CREATININE 5.15 mg/dL (0.60-1.30); POTASSIUM 3.4 mmol/L (3.5-5.1)
[2020-09-23 18:51] LABS: ALBUMIN 4.2 g/dL (3.4-5.0); BILIRUBIN,TOTAL 0.6 mg/dL (0.1-1.0); TOTAL PROTEIN, SERUM 8.4 g/dL (6.4-8.2)
[2020-09-23] MEDS ORDERED: ONDANSETRON HCL 4 MG/2 ML VIAL IVP ONE (19:15)
[2020-09-23] MEDS ORDERED: MORPHINE SULFATE 2 MG/ML SYRINGE IVP ONE (19:15)
[2020-09-23] MEDS ORDERED: NITROGLYCERIN 2% (1 GM=INCH) PACKET TP ONE (19:15)
[2020-09-23] MEDS ORDERED: SERTRALINE HCL 50 MG TABLET PO PRN (20:30)
[2020-09-23] MEDS ORDERED: 0.9% SODIUM CHLORIDE 10 ML SYRINGE IVP PRN (20:30)
[2020-09-23] MEDS ORDERED: BISACODYL 10 MG RECTAL RECTAL SUPPOSITORY PR PRN (20:30)
[2020-09-23] MEDS ORDERED: IPRATROPIUM BROMIDE 0.5 MG/2.5 ML NEB SOLUTION NEB PRN (20:30)
[2020-09-23] MEDS ORDERED: ONDANSETRON HCL 4 MG/2 ML VIAL IVP PRN ×2 (20:30)
[2020-09-23] MEDS ORDERED: ZOLPIDEM TARTRATE 5 MG TABLET PO PRN (20:30)
[2020-09-23] MEDS ORDERED: ALBUTEROL SULFATE 2.5 MG/0.5 ML NEB SOLUTION NEB PRN ×2 (20:30)
[2020-09-23] MEDS ORDERED: MAGNESIUM HYDROXIDE SUSPENSION 30 ML UDCUP PO PRN (20:30)
[2020-09-23] MEDS ORDERED: DEXTROSE 50%-WATER 25 GM/50 ML SYRINGE IVP PRN (20:30)
[2020-09-23] MEDS ORDERED: NITROGLYCERIN 0.4 MG SUBLINGUAL TABLET #25 SL PRN (20:30)
[2020-09-23] MEDS ORDERED: ACETAMINOPHEN 325 MG TABLET PO PRN (20:30)
[2020-09-23] MEDS ORDERED: INSLAN SQ (20:35)
[2020-09-23] MEDS ORDERED: MORPHINE SULFATE 4 MG/ML SYRINGE IVP PRN (20:45)
[2020-09-23 20:51] LABS: COVID AG,FIA SOURCE NASOPHARYNGEAL
[2020-09-23] MEDS ORDERED: HydrALAZINE HCL 50 MG TABLET PO SCH (21:00)
[2020-09-23] MEDS ORDERED: GABAPENTIN 100 MG CAPSULE PO SCH (21:00)
[2020-09-23] MEDS: DOCUSATE SODIUM 100 MG CAPSULE PO SCH ×2 (21:00→21:16)
[2020-09-23] MEDS: FAMOTIDINE 10 MG/ML 2 ML VIAL IVP SCH (21:15)
[2020-09-23] MEDS: ATORVASTATIN CALCIUM 40 MG TABLET PO SCH (21:16)
[2020-09-23] MEDS: GABAPENTIN 100 MG CAPSULE PO SCH (21:16)
[2020-09-23] MEDS: INSULIN GLARGINE,HUM.REC.ANLOG 100 UNITS/ML SQ SCH (21:17)
[2020-09-23 21:22] LABS: GLUCOSE,POINT OF CARE 175 MG/DL (70-110)
[2020-09-23 22:26] VITALS: BP 182/75
[2020-09-23] MEDS: HydrALAZINE HCL 50 MG TABLET PO SCH (22:29)
[2020-09-23] MEDS: ACETAMINOPHEN 325 MG TABLET PO PRN (22:29)
[2020-09-24] VITALS (8 sets, daily range): BP systolic 137–218; BP diastolic 51–82
[2020-09-24] MEDS: HEPARIN SODIUM,PORCINE 5,000 UNITS/ML VIAL SQ SCH ×3 (00:12→15:33)
[2020-09-24] MEDS: NITROGLYCERIN 2% (1 GM=INCH) PACKET TP SCH ×4 (06:00→17:53)
[2020-09-24] MEDS: INSULIN LISPRO 100 UNITS/ML SQ PRN ×2 (06:48→17:52)
[2020-09-24 07:32] LABS: GLUCOMETER DEV NAME(LOC) 5S.2B; GLUCOSE,POINT OF CARE 142 MG/DL (70-110)
[2020-09-24] MEDS: GABAPENTIN 100 MG CAPSULE PO SCH ×3 (08:05→20:01)
[2020-09-24] MEDS: SEVELAMER CARBONATE 800 MG TABLET PO SCH ×3 (08:05→17:48)
[2020-09-24] MEDS: FAMOTIDINE 10 MG/ML 2 ML VIAL IVP SCH ×2 (08:05→20:00)
[2020-09-24] MEDS: HydrALAZINE HCL 50 MG TABLET PO SCH ×3 (08:06→21:00)
[2020-09-24] MEDS: FUROSEMIDE 40 MG TABLET PO SCH (08:06)
[2020-09-24] MEDS: LISINOPRIL 20 MG TABLET PO SCH (08:06)
[2020-09-24] MEDS: DOCUSATE SODIUM 100 MG CAPSULE PO SCH ×2 (08:06→20:01)
[2020-09-24] MEDS: AmLODIPine BESYLATE 10 MG TABLET PO SCH (08:06)
[2020-09-24] MEDS: CINACALCET HCL 30 MG TABLET PO SCH (08:07)
[2020-09-24] MEDS: ASPIRIN 81 MG CHEWABLE TABLET PO SCH (08:07)
[2020-09-24] MEDS: ONDANSETRON HCL 4 MG/2 ML VIAL IVP PRN ×2 (08:20→20:01)
[2020-09-24] MEDS: ACETAMINOPHEN 325 MG TABLET PO PRN ×2 (08:20→14:17)
[2020-09-24] MEDS: METOPROLOL SUCCINATE 25 MG ER TABLET PO SCH (09:00)
[2020-09-24] MEDS ORDERED: GABA-1216 PO (10:41)
[2020-09-24] MEDS ORDERED: SERT-158 PO (10:41)
[2020-09-24] MEDS ORDERED: LISI-894 PO (10:41)
[2020-09-24] MEDS ORDERED: FURO40 PO (10:41)
[2020-09-24] MEDS ORDERED: ASPI-1450 PO (10:41)
[2020-09-24] MEDS: HydrALAZINE HCL 20 MG/ML VIAL IVP PRN ×2 (12:08→20:01)
[2020-09-24] MEDS: ATORVASTATIN CALCIUM 40 MG TABLET PO SCH (20:01)
[2020-09-24] MEDS: INSULIN GLARGINE,HUM.REC.ANLOG 100 UNITS/ML SQ SCH (21:38)
[2020-09-24 23:51] LABS: GLUCOMETER DEV NAME(LOC) 5S.1; GLUCOSE,POINT OF CARE 98 MG/DL (70-110)
[2020-09-24 23:51] LABS: GLUCOMETER DEV NAME(LOC) 5S.1; GLUCOSE,POINT OF CARE 185 MG/DL (70-110)
[2020-09-24 23:52] LABS: GLUCOMETER DEV NAME(LOC) 5S.1; GLUCOSE,POINT OF CARE 133 MG/DL (70-110)
[2020-09-25] MEDS: HEPARIN SODIUM,PORCINE 5,000 UNITS/ML VIAL SQ SCH ×4 (00:36→23:45)
[2020-09-25 04:11] VITALS: BP 163/69
[2020-09-25] MEDS: NITROGLYCERIN 2% (1 GM=INCH) PACKET TP SCH ×6 (06:00→23:45)
[2020-09-25 06:07] LABS: CALCIUM, TOTAL 9.2 mg/dL (8.8-10.5); CREATININE 9.83 mg/dL (0.60-1.30); POTASSIUM 4.1 mmol/L (3.5-5.1)
[2020-09-25] MEDS: ONDANSETRON HCL 4 MG/2 ML VIAL IVP PRN ×2 (06:49→15:01)
[2020-09-25 06:58] LABS: GLUCOMETER DEV NAME(LOC) 5N.3; GLUCOSE,POINT OF CARE 66 MG/DL (70-110)
[2020-09-25 07:21] VITALS: BP 162/74
[2020-09-25] MEDS: HydrALAZINE HCL 50 MG TABLET PO SCH ×3 (08:49→22:03)
[2020-09-25] MEDS: FUROSEMIDE 40 MG TABLET PO SCH (08:49)
[2020-09-25] MEDS: SEVELAMER CARBONATE 800 MG TABLET PO SCH ×3 (08:49→18:25)
[2020-09-25] MEDS: CINACALCET HCL 30 MG TABLET PO SCH (08:49)
[2020-09-25] MEDS: METOPROLOL SUCCINATE 25 MG ER TABLET PO SCH (08:49)
[2020-09-25] MEDS: AmLODIPine BESYLATE 10 MG TABLET PO SCH (08:50)
[2020-09-25] MEDS: DOCUSATE SODIUM 100 MG CAPSULE PO SCH ×2 (08:50→22:03)
[2020-09-25] MEDS: FAMOTIDINE 10 MG/ML 2 ML VIAL IVP SCH ×2 (08:50→22:04)
[2020-09-25] MEDS: GABAPENTIN 100 MG CAPSULE PO SCH ×3 (08:51→22:03)
[2020-09-25] MEDS: LISINOPRIL 20 MG TABLET PO SCH (08:51)
[2020-09-25] MEDS: ASPIRIN 81 MG CHEWABLE TABLET PO SCH (08:54)
[2020-09-25 11:31] VITALS: BP 150/62
[2020-09-25] MEDS ORDERED: LIDOCAINE/PF 2% 5 ML VIAL IM ONE (12:00)
[2020-09-25] MEDS ORDERED: SODIUM CHLORIDE 0.9% 1,000 ML ONE (15:24)
[2020-09-25 15:29] VITALS: BP 165/68
[2020-09-25 19:13] LABS: GLUCOMETER DEV NAME(LOC) 5N.1B; GLUCOSE,POINT OF CARE 129 MG/DL (70-110)
[2020-09-25 19:13] LABS: GLUCOMETER DEV NAME(LOC) 5S.1; GLUCOSE,POINT OF CARE 106 MG/DL (70-110)
[2020-09-25] MEDS: ACETAMINOPHEN 325 MG TABLET PO PRN (20:27)
[2020-09-25 20:55] VITALS: BP 126/54
[2020-09-25] MEDS: INSULIN LISPRO 100 UNITS/ML SQ PRN (22:02)
[2020-09-25] MEDS: INSULIN GLARGINE,HUM.REC.ANLOG 100 UNITS/ML SQ SCH (22:02)
[2020-09-25] MEDS: ATORVASTATIN CALCIUM 40 MG TABLET PO SCH (22:03)
[2020-09-25 23:10] VITALS: BP 140/62
[2020-09-26] VITALS (7 sets, daily range): BP systolic 128–197; BP diastolic 51–76
[2020-09-26] MEDS: NITROGLYCERIN 2% (1 GM=INCH) PACKET TP SCH ×3 (05:38→17:00)
[2020-09-26 06:00] LABS: GLUCOMETER DEV NAME(LOC) 5N.1B; GLUCOSE,POINT OF CARE 287 MG/DL (70-110)
[2020-09-26 06:52] LABS: GLUCOMETER DEV NAME(LOC) 5S.1; GLUCOSE,POINT OF CARE 118 MG/DL (70-110)
[2020-09-26] MEDS: LISINOPRIL 20 MG TABLET PO SCH (08:09)
[2020-09-26] MEDS: METOPROLOL SUCCINATE 25 MG ER TABLET PO SCH (08:09)
[2020-09-26] MEDS: SEVELAMER CARBONATE 800 MG TABLET PO SCH ×3 (08:09→17:01)
[2020-09-26] MEDS: CINACALCET HCL 30 MG TABLET PO SCH (08:09)
[2020-09-26] MEDS: FUROSEMIDE 40 MG TABLET PO SCH (08:09)
[2020-09-26] MEDS: ASPIRIN 81 MG CHEWABLE TABLET PO SCH (08:09)
[2020-09-26] MEDS: HEPARIN SODIUM,PORCINE 5,000 UNITS/ML VIAL SQ SCH ×2 (08:10→20:32)
[2020-09-26] MEDS: FAMOTIDINE 10 MG/ML 2 ML VIAL IVP SCH ×2 (08:10→20:33)
[2020-09-26] MEDS: HydrALAZINE HCL 50 MG TABLET PO SCH ×3 (08:10→21:00)
[2020-09-26] MEDS: DOCUSATE SODIUM 100 MG CAPSULE PO SCH ×2 (08:10→20:32)
[2020-09-26] MEDS: AmLODIPine BESYLATE 10 MG TABLET PO SCH ×2 (08:10→21:00)
[2020-09-26] MEDS: GABAPENTIN 100 MG CAPSULE PO SCH ×3 (08:11→20:32)
[2020-09-26] MEDS: HydrALAZINE HCL 20 MG/ML VIAL IVP PRN (11:48)
[2020-09-26] MEDS: ACETAMINOPHEN 325 MG TABLET PO PRN ×2 (11:49→20:47)
[2020-09-26] MEDS: INSULIN LISPRO 100 UNITS/ML SQ PRN ×2 (12:09→20:43)
[2020-09-26] MEDS: ONDANSETRON HCL 4 MG/2 ML VIAL IVP PRN (13:20)
[2020-09-26 15:59] LABS: GLUCOMETER DEV NAME(LOC) 5S.2B; GLUCOSE,POINT OF CARE 129 MG/DL (70-110)
[2020-09-26 20:10] LABS: GLUCOMETER DEV NAME(LOC) 5S.1; GLUCOSE,POINT OF CARE 322 MG/DL (70-110)
[2020-09-26] MEDS: ATORVASTATIN CALCIUM 40 MG TABLET PO SCH (20:38)
[2020-09-26] MEDS: INSULIN GLARGINE,HUM.REC.ANLOG 100 UNITS/ML SQ SCH (20:42)
[2020-09-26 20:55] LABS: GLUCOMETER DEV NAME(LOC) 5N.1B; GLUCOSE,POINT OF CARE 140 MG/DL (70-110)
[2020-09-26 21:20] LABS: GLUCOMETER DEV NAME(LOC) 5S.1; GLUCOSE,POINT OF CARE 186 MG/DL (70-110)
[2020-09-27] MEDS: ACETAMINOPHEN 325 MG TABLET PO PRN ×2 (03:54→11:33)
[2020-09-27 04:41] VITALS: BP 164/68
[2020-09-27] MEDS: NITROGLYCERIN 2% (1 GM=INCH) PACKET TP SCH ×3 (06:00→12:00)
[2020-09-27] MEDS: INSULIN LISPRO 100 UNITS/ML SQ PRN ×2 (06:31→12:51)
[2020-09-27 07:06] VITALS: BP 130/55
[2020-09-27 07:29] LABS: MAGNESIUM 3.1 mg/dL (1.80-2.40); PHOSPHORUS 4.7 mg/dL (2.5-4.9)
[2020-09-27] MEDS: SEVELAMER CARBONATE 800 MG TABLET PO SCH ×2 (08:02→12:46)
[2020-09-27] MEDS: METOPROLOL SUCCINATE 25 MG ER TABLET PO SCH (08:02)
[2020-09-27] MEDS: ASPIRIN 81 MG CHEWABLE TABLET PO SCH (08:02)
[2020-09-27] MEDS: HydrALAZINE HCL 50 MG TABLET PO SCH ×2 (08:03→16:17)
[2020-09-27] MEDS: CINACALCET HCL 30 MG TABLET PO SCH (08:03)
[2020-09-27] MEDS: FAMOTIDINE 10 MG/ML 2 ML VIAL IVP SCH (08:03)
[2020-09-27] MEDS: HEPARIN SODIUM,PORCINE 5,000 UNITS/ML VIAL SQ SCH (08:03)
[2020-09-27] MEDS: LISINOPRIL 20 MG TABLET PO SCH (08:03)
[2020-09-27] MEDS: GABAPENTIN 100 MG CAPSULE PO SCH ×2 (08:03→16:18)
[2020-09-27] MEDS: AmLODIPine BESYLATE 10 MG TABLET PO SCH (08:03)
[2020-09-27] MEDS: DOCUSATE SODIUM 100 MG CAPSULE PO SCH (08:03)
[2020-09-27] MEDS: FUROSEMIDE 40 MG TABLET PO SCH (08:03)
[2020-09-27] MEDS ORDERED: VITAMIN B COMP/VIT C/FOLIC ACID CAPSULE PO SCH (09:00)
[2020-09-27] MEDS ORDERED: SODIUM CHLORIDE 0.9% 2,000 ML ONE (09:54)
[2020-09-27] MEDS ORDERED: SOD FERRIC GLUC COMPLX IV ONE (10:15)
[2020-09-27] MEDS ORDERED: SUCROSE IV ONE (10:15)
[2020-09-27] MEDS ORDERED: SODIUM CHLORIDE 0.9% IV ONE (10:15)
[2020-09-27 12:14] LABS: GLUCOMETER DEV NAME(LOC) 5N.3; GLUCOSE,POINT OF CARE 222 MG/DL (70-110)
[2020-09-27 16:18] VITALS: BP 120/80
[2020-09-27] MEDS ORDERED: LIDOCAINE/PF 1% 2 ML VIAL IM ONE (16:54)
[2020-09-27 21:09] LABS: GLUCOMETER DEV NAME(LOC) 5S.1; GLUCOSE,POINT OF CARE 189 MG/DL (70-110)
== END 2020-09-27 16:55 | disposition home or self-care (01) | DRG 313 ==
LOC: EMS 16:58 → 5S 21:00
PROVIDERS: ADMIT Hospitalist; ATTEND Hospitalist
DX: R07.89 Other chest pain (principal); N18.6 End stage renal disease; N25.81 Secondary hyperparathyroidism of renal origin; I16.1 Hypertensive emergency; I50.32 Chronic diastolic (congestive) heart failure; I13.2 Hypertensive heart and chronic kidney disease with heart failure and with stage 5 chronic kidney disease, or end stage renal disease; I25.10 Atherosclerotic heart disease of native coronary artery without angina pectoris; F41.9 Anxiety disorder, unspecified; E11.40 Type 2 diabetes mellitus with diabetic neuropathy, unspecified; D63.1 Anemia in chronic kidney disease; E83.39 Other disorders of phosphorus metabolism; Z20.822 Contact with and (suspected) exposure to COVID-19; Z99.2 Dependence on renal dialysis; E11.22 Type 2 diabetes mellitus with diabetic chronic kidney disease; E78.5 Hyperlipidemia, unspecified; Z79.4 Long term (current) use of insulin; Z86.15 Personal history of latent tuberculosis infection; Z88.8 Allergy status to other drugs, medicaments and biological substances; Z83.3 Family history of diabetes mellitus; Z82.49 Family history of ischemic heart disease and other diseases of the circulatory system
CPT/HCPCS: 83735; 84100; 87040; 87081; 87340; 87426; 93005; 93306; 99291; J0360; J1644; J1815; J2270; J2405; J2916; J3490; J7030; J7050; 36415-L1; 36415-TC; 71045-TC; 80061-TC

== ENCOUNTER 2023-02-02 12:27 | Emergency (ER) | payer MEDICARE, OTHER ==
[~2023-02-02] VITALS: Ht 152.4 cm; Wt 57.7 kg
[~2023-02-02 12:27] MED LIST changes: +ASPI-1450 PO; -ASPI81TA39 PO; +FURO40 PO; -FURO40TA5 PO; +GABA-1216 PO; -GABA-529 PO; +INSLAN SQ; -ISON300T17 PO; +LISI-894 PO; -LISI40TA9 PO; -MECL-160 PO; +SERT-158 PO; -SERT-439 PO
[2023-02-02 12:28] VITALS: TEMP 98.4
[2023-02-02 15:04] VITALS: BP 167/64; PULSE 68; RESP 12
== END 2023-02-02 15:20 | disposition home or self-care (01) ==
LOC: EMS 12:27
DX: S62.101A Fracture of unspecified carpal bone, right wrist, initial encounter for closed fracture (principal); E11.9 Type 2 diabetes mellitus without complications; F41.9 Anxiety disorder, unspecified; I10 Essential (primary) hypertension; N18.6 End stage renal disease; Z88.5 Allergy status to narcotic agent; Z99.2 Dependence on renal dialysis; W19.XXXA Unspecified fall, initial encounter; Y93.89 Activity, other specified; Y92.89 Other specified places as the place of occurrence of the external cause; Y99.8 Other external cause status
CPT/HCPCS: 99283

== ENCOUNTER 2024-06-24 12:22 | Emergency (ER) | payer MEDICARE, OTHER ==
[~2024-06-24] VITALS: Ht 152.4 cm; Wt 58.0 kg
[~2024-06-24 12:22] MED LIST changes: -FURO40 PO; +FURO40TA6 PO; +METO-325 PO; -METO-558 PO; -SEVE800T17 PO; +SEVE800T38 PO
[2024-06-24 12:29] VITALS: BP 151/64; PULSE 66; RESP 16; TEMP 98; O2SAT 98
[2024-06-24 12:43] LABS: COVID AG,FIA SOURCE NASAL SWAB
[2024-06-24 13:03] LABS: INFLUENZA TYPE A NEGATIVE FOR TYPE A (NEGATIVE); INFLUENZA TYPE B NEGATIVE FOR TYPE B (NEGATIVE); SARS-COV2 (COVID) ANTIGEN,FIA Negative (Negative)
[2024-06-24] MEDS: ONDANSETRON 4 MG TABLET PO ONE (14:52)
[2024-06-24] MEDS: ACETAMINOPHEN 325 MG TABLET PO ONE (14:52)
[2024-06-24] MEDS ORDERED: ONDA-104 PO (14:58)
== END 2024-06-24 16:52 | disposition home or self-care (01) ==
LOC: EMS 12:22
DX: R11.2 Nausea with vomiting, unspecified (principal); F41.9 Anxiety disorder, unspecified; E11.22 Type 2 diabetes mellitus with diabetic chronic kidney disease; I12.0 Hypertensive chronic kidney disease with stage 5 chronic kidney disease or end stage renal disease; N18.6 End stage renal disease; Z79.4 Long term (current) use of insulin; Z79.82 Long term (current) use of aspirin; Z79.899 Other long term (current) drug therapy; Z88.5 Allergy status to narcotic agent; Z99.2 Dependence on renal dialysis; Z20.822 Contact with and (suspected) exposure to COVID-19
CPT/HCPCS: 99283; 87426; 82962; 87804; Q0162